=== PATIENT | male | born 1955 | race Caucasian/White ===

== ENCOUNTER 2021-05-17 11:28 | Emergency (ER) | payer OTHER ==
[~2021-05-17] VITALS: Ht 177.8 cm; Wt 92.5 kg
[2021-05-17 11:45] VITALS: BP_SYST 154
--- NOTE | 2021-05-17 11:45 | NUR ---
Pt. bib step daughter with c/o nausea X 10 days, denies any emesis but has had weight loss, recently went to 2 different urgent cares and was given zofran and phenergan but only temporily helps and nausea returns, denies any abd. pain, diarrhea or constipation
--- NOTE | 2021-05-17 11:45 | NUR ---
Patient to ER bed 7 for triage and evaluation. Side rails up..assumed care.
--- NOTE | 2021-05-17 12:36 | NUR ---
ER at bedside examining patient.
[2021-05-17 13:18] LABS: BILIRUBIN,URINE 1+ (NEGATIVE); BLOOD, URINE NEGATIVE (NEGATIVE); CLARITY/URINE CLEAR (CLEAR); COLOR,URINE YELLOW (YELLOW); GLUCOSE,URINE NEGATIVE (NEGATIVE); KETONES,URINE 1+ (NEGATIVE); LEUKOCYTE ESTERASE ,URINE NEGATIVE (NEGATIVE); NITRITE, URINE NEGATIVE (NEGATIVE); PH,URINE 5.5 (5.0-8.0); PROTEIN URINE NEGATIVE (NEGATIVE)
[2021-05-17 14:14] LABS: BASOPHILS % (AUTO) 0.3 % (0.0-2.0); EOSINOPHILS # (AUTO) 0.1 K/uL (0.0-0.4); EOSINOPHILS % (AUTO) 1.1 % (0.0-4.0); HEMATOCRIT 49.9 % (36-54); HEMOGLOBIN 17.1 g/dL (14.0-18.0); LYMPHOCYTES # (AUTO) 1.8 K/uL (1.0-5.5); LYMPHOCYTES % (AUTO) 17.6 % (20.5-51.5); MEAN CORPUSCULAR HEMOGLOBIN 31 pg (27-31); MEAN CORPUSCULAR HGB CONC 34 % (32-36); MEAN CORPUSCULAR VOLUME 90 fL (79.0-98.0); MONOCYTES # (AUTO) 0.8 K/uL (0.0-1.0); MONOCYTES % (AUTO) 7.6 % (1.7-9.3); NEUTROPHILS # (AUTO) 7.6 K/uL (1.8-7.7); NEUTROPHILS % (AUTO) 73.4 % (40.0-70.0); PLATELET COUNT (AUTO) 240 K/uL (130-430); RED BLOOD CELL COUNT(AUTO) 5.56 MIL/uL (4.2-6.2); RED CELL DISTRIBUTION WIDTH 12.7 % (9.0-15.0); WHITE BLOOD COUNT (AUTO) 10.3 K/uL (4.8-10.8)
[2021-05-17 14:42] LABS: CALCIUM 9.2 mg/dL (8.4-11.0); CREATININE 1.16 mg/dL (0.55-1.30); POTASSIUM 3.9 mmol/L (3.5-5.1)
[2021-05-17 14:48] LABS: TOTAL BILIRUBIN 1.2 mg/dL (0.0-1.0)
--- NOTE | 2021-05-17 15:18 | NUR ---
informed Dr. Sinha of elevated BP, he is in speaking with patient
[2021-05-17] MEDS ORDERED: cloNIDine HCL 0.1 MG TABLET PO ONE (15:30)
--- NOTE | 2021-05-17 16:44 | NUR ---
Patient given written and verbal discharge instructions and verbalizes understanding. Dr. Sinha discussed with patient the results and treatment provided. Patient in stable condition. Rx of clonidine given. Patient educated on pain management and to follow up with PMD. Pain Scale 0. Opportunity for questions provided and answered. Medication side effect fact sheet provided.
[2021-05-17 16:45] VITALS: BP_SYST 149
== END 2021-05-17 16:44 | disposition home or self-care (01) ==
LOC: SED 11:28
DX: R11.0 Nausea (principal); I10 Essential (primary) hypertension
CPT/HCPCS: 36415; 80053; 81003; 83690; 84484; 85025; 99283

== ENCOUNTER 2023-10-04 08:54 | Emergency (ER) | payer OTHER ==
[~2023-10-04] VITALS: Ht 177.8 cm; Wt 104.3 kg
[2023-10-04 09:08] VITALS: BP_SYST 190; PULSE 78; RESP 24; TEMP 97; O2SAT 100
[2023-10-04] MEDS: ONDANSETRON 4 MG ODT TAB PO ONE (09:38)
[2023-10-04] MEDS: cloNIDine HCL 0.1 MG TABLET PO ONE (09:38)
[2023-10-04 09:48] LABS: BASOPHILS % (AUTO) 0.4 % (0.0-2.0); EOSINOPHILS # (AUTO) 0.1 K/uL (0.0-0.4); EOSINOPHILS % (AUTO) 0.5 % (0.0-4.0); HEMATOCRIT 51.1 % (36-54); HEMOGLOBIN 17.5 g/dL (14.0-18.0); LYMPHOCYTES # (AUTO) 1.6 K/uL (1.0-5.5); MEAN CORPUSCULAR HEMOGLOBIN 31 pg (27-31); MEAN CORPUSCULAR HGB CONC 34 % (32-36); MEAN CORPUSCULAR VOLUME 91 fL (79.0-98.0); MONOCYTES # (AUTO) 0.4 K/uL (0.0-1.0); MONOCYTES % (AUTO) 4.3 % (1.7-9.3); NEUTROPHILS # (AUTO) 8.2 K/uL (1.8-7.7); NEUTROPHILS % (AUTO) 79.8 % (40.0-70.0); PLATELET COUNT (AUTO) 274 K/uL (130-430); RED BLOOD CELL COUNT(AUTO) 5.63 MIL/uL (4.2-6.2); RED CELL DISTRIBUTION WIDTH 13.7 % (9.0-15.0); WHITE BLOOD COUNT (AUTO) 10.3 K/uL (4.8-10.8)
[2023-10-04 10:05] LABS: ALANINE AMINOTRANSFERASE 30 U/L (12-78); ANION GAP 12 (5-15); ASPARTATE AMINOTRANSFERASE 16 U/L (10-37); CALCIUM 9.4 mg/dL (8.4-11.0); CARBON DIOXIDE 25 mmol/L (23-29); CHLORIDE 103 mmol/L (98-107); CREATININE 1.16 mg/dL (0.55-1.30); GFR AFRICAN AMERICAN 81 mL/min (>90); GFR NON AFRICAN-AMERICAN 67 mL/min (>90); GLUCOSE 117 mg/dL (74-106); POTASSIUM 4.4 mmol/L (3.5-5.1); SODIUM SERUM 140 mmol/L (136-145); TOTAL BILIRUBIN 0.5 mg/dL (0.0-1.0); TOTAL PROTEIN, SERUM 8.2 g/dL (6.4-8.3); UREA NITROGEN, BLOOD 13 mg/dL (8-21)
[2023-10-04 10:08] LABS: BILIRUBIN,DIRECT 0.1 mg/dL (0.0-0.3); CREATINE KINASE, TOTAL 88 U/L (39-308); LIPASE 31 U/L (16-77)
[2023-10-04] MEDS ORDERED: ONDA-8 TL (10:39)
[2023-10-04] MEDS ORDERED: CLON0.2T PO (10:39)
[2023-10-04 10:50] VITALS: BP_SYST 160; PULSE 72; RESP 18; TEMP 97.8; O2SAT 97
== END 2023-10-04 10:49 | disposition home or self-care (01) ==
LOC: SED 08:54
DX: I16.0 Hypertensive urgency (principal); R11.0 Nausea; Z79.899 Other long term (current) drug therapy
CPT/HCPCS: 99285; 71045; 80076; 80048; 82550; 83880; 83690; 85025; 84484; 36415; 93005; Q0162